=== PATIENT | male | born 1965 | race Caucasian/White ===

== ENCOUNTER 2019-06-29 19:01 | Emergency (ER) | payer BC, OTHER ==
[~2019-06-29] VITALS: Ht 175 cm; Wt 90.0 kg
--- OUTSIDE RECORDS SUMMARY | 2019-06-29 20:44 | XMS REPORT ---
Author Pravin Boone Organization [employer] Address Unknown Phone Unavailable Care Team Providers Care Health Unit Coordinator Name Role Phone DYAN COMBS CP Unavailable Allergies, Adverse Reactions, Alerts Substance Reaction Event Type N.K.D.A. Info Not Available Non Drug Allergy Problems Problem Type Condition Code Onset Dates Condition Statu s Assessment Dental caries K02.9 Active Assessment Dental examination Z01.20 Active Medications Medication Code System Code Instructions Start Date End Date Status Dosage Lisinopril [facility] [address]-17 20 MG Orally Once a day 1 tablet Procedures Procedure Coding System Code Date INTRAORL-PERIAPICAL 1 FILM 61439 CPT-4 D0220 2015 EXTRAC ERUPTED TOOTH/EXPOSED ROOT CPT-4 D7140 2015 LTD ORAL EVALUATION - PROBLEM FOCUS CPT-4 D0140 2015 Billing Notes on claim CPT-4 EC109 2015 Vital Signs Date/Time: 2015 Blood Pressure Diastolic 82 mmHg Blood Pressure Systolic 142 mmHg Results No Known Results Summary Purpose eClinicalWorks Submission
--- OUTSIDE RECORDS SUMMARY | 2019-06-29 20:44 | XMS REPORT ---
Author Author Pravin GORDON Organization [facility] Address [address] [place] [address] Care Team Providers Care Outpatient Scheduler Name Role Phone FRANCINE GORDON Unavailable [phone] PROBLEMS Unknown Problems ALLERGIES No Information ENCOUNTERS Encounter Location Date Diagnosis [facility] [address] [phone] Nov, Encounter for immunization Z 23 [facility] [address] [phone] Mar, Acute bilateral low back john n without sciatica M54.5 [facility] [address] [facility] [id number] [address] [place] [phone] Mar, Acute bilateral low back john n without sciatica M54.5 [facility] [address] [place] [id number] [place] [phone] Nov, Encounter for immunization Z 23 [facility] [address] [place] [id number] [address] [place] [phone] Apr, Dental examination Z01.20 an d Dental caries K02.9 [facility] [address] [place] [id number] [address] [place] [phone] Nov, Encounter for immunization Z 23 [facility] [address] [place] [id number] [address] [place] [phone] Nov, [facility] [address] [place] [id number] [address] [place] [phone] Nov, [facility] [address] [place] [id number] [address] [place] [phone] Nov, [facility] [address] [facility] [id number] [address] [place] [address] 11 Nov, 2009 IMMUNIZATIONS Vaccine Route Administration Date Status FLULAVAL QUAD 0.5ML (6 MO & UP) 2017 IM Intramuscular Dec 10 18 Administered SOCIAL HISTORY Never Assessed REASON FOR VISIT Flu shot PLAN OF CARE VITAL SIGNS MEDICATIONS Unknown Medications RESULTS No Results PROCEDURES Procedure Date Ordered Result Body Site FLULAVAL QUAD 0.5ML (6 MO AND UP) 2017Dec 10, 2017 SINGLE IMMUNIZATION ADMIN Dec 10, 2017 INSTRUCTIONS MEDICATIONS ADMINISTERED No Known Medications MEDICAL (GENERAL) HISTORY Type Description Date Medical History asthma Medical History high blood pressure Surgical History removed part of nose
--- OUTSIDE RECORDS SUMMARY | 2019-06-29 20:44 | XMS REPORT ---
Author Pravin Gilbert [facility] eClinicalWorks Address Unknown Phone Unavailable Care Team Providers Care Ship'S Carpenter Name Role Phone CHRISTOS BROWN Unavailable Allergies No Known Allergies Problems Problem Type Condition Code Onset Dates Condition Statu s Assessment Encounter for immunization Z23 A ctive Medications No Known Medications Procedures Procedure Coding System Code Date SINGLE IMMUNIZATION ADMIN CPT-4 94103 Nov FLUARIX QUAD P-FREE 3 AND UP .50 2015 CPT-4 42347 Dec 13, 2015 Results No Known Results Immunizations Vaccine Administration Date FLUARIX QUAD P-FREE 3 AND UP .50 2015Dec 13, 2015 Summary Purpose eClinicalWorks Submission
--- OUTSIDE RECORDS SUMMARY | 2019-06-29 20:44 | XMS REPORT ---
Author Author Pravin BENJAMIN [facility] Address [address] [place] [address] Care Team Providers Care Bead Cutter Name Role Phone SANCHO BENJAMIN Unavailable PROBLEMS Unknown Problems ALLERGIES No Known Allergies ENCOUNTERS Encounter Location Date Diagnosis [facility] [address] [facility] [id number] [address] [place] [phone] Mar, Acute bilateral low back john n without sciatica M54.5 [facility] [address] [id number] [address] [place] [phone] Mar, Acute bilateral low back john n without sciatica M54.5 [facility] [address] [id number] [place] [id number] Nov, Encounter for immunization Z 23 [facility] [address] [id number] [address] [place] [phone] Apr, Dental examination Z01.20 an d Dental caries K02.9 [facility] [address] [id number] [address] [place] [phone] Nov, Encounter for immunization Z 23 [facility] [address] [id number] [address] [place] [phone] Nov, [facility] [address] [id number] [address] [place] [phone] Nov, [facility] [address] [facility] [id number] [address] [place] [phone] Nov, [facility] [address] [facility] [id number] [address] [place] [phone] Nov, IMMUNIZATIONS No Known Immunizations SOCIAL HISTORY Never Assessed REASON FOR VISIT back pain/flu symptoms JStrasserRN PLAN OF CARE Activity Details Follow Up prn Reason: VITAL SIGNS Height 70 inches in 2017-03-18 Weight 234 lbs 2017-03-18 Temperature 97.0 degrees Fahrenheit 2017-03-18 Heart Rate 80 bpm 2017-03-18 Respiratory Rate 18 2017-03-18 BMI 33.57 kg/m2 2017-03-18 Blood pressure systolic 110 mmHg 2017-03-18 Blood pressure diastolic 78 mmHg 2017-03-18 MEDICATIONS Medication Instructions Dosage Frequency Start Date End Date Duration S tatus PredniSONE 10 MG Orally Once a day Take 4 tabs po x3 da ys, 3 tabs po x3 days, 2 tabs po x3 days, 1 tab po x3 days. 24h 12 day s Active Symbicort Active Cyclobenzaprine HCl 7.5 MG Orally Three times a day 1 tablet as needed 8 h Active Aleve Active Lisinopril 20 MG Orally Once a day 1 tablet 24h Active RESULTS No Results PROCEDURES No Known procedures INSTRUCTIONS MEDICATIONS ADMINISTERED No Known Medications MEDICAL (GENERAL) HISTORY Type Description Date Medical History asthma Medical History high blood pressure Surgical History removed part of nose
--- OUTSIDE RECORDS SUMMARY | 2019-06-29 20:44 | XMS REPORT ---
Author Author Pravin BROWN Organization e[employer]Works Address Unknown Phone Unavailable Care Team Providers Care Thaw Shed Heater Tender Name Role Phone CHRISTOS BROWN CP Unavailable Allergies No Known Allergies Problems Problem Type Condition Code Onset Dates Condition Statu s Assessment Encounter for immunization Z23 A ctive Medications No Known Medications Procedures Procedure Coding System Code Date SINGLE IMMUNIZATION ADMIN CPT-4 50185 Nov FLUARIX QUAD (3 & UP)-GSK-2014 CPT-[address] 2014 Results No Known Results Immunizations Vaccine Administration Date FLUARIX QUAD (3 & UP)-GSK-2014Dec 04, 2014 Summary Purpose eClinicalWorks Submission
[2019-06-29] MEDS ORDERED: TETANUS,DIPTH,PERTUSS P/F (BOOSTRIX) 0.5 ML VIAL IM ONE (21:15)
[2019-06-29] MEDS ORDERED: LIDOCAINE 1% INJ 20 ML 20 ML VIAL INJ ONE (21:15)
--- NOTE | 2019-06-29 21:23 | ED Upper Extremity ---
General Stated Complaint: RIGHT PINKIE FINGER INJ History of Present Illness Date Seen by Provider: June 29, 2019 Time Seen by Provider: 21:05 Initial Comments 54 year old male presents for injury to his right 5th finger, with laceration and partial nail avulsion. 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 Onset: just prior to arrival Pain/Injury Location: right 5th finger Method of Injury: incised Modifying Factors: Improves With Rest Allergies and Home Medications Allergies Coded Allergies: No Known Drug Allergies (Unverified , 06/29/19) Home Medications Cephalexin 500 Mg Tablet, 500 MG PO TID Prescribed by: SANCHO ZURITA on 06/29/192221 Patient Home Medication List Home Medication List Reviewed: Yes Review of Systems Constitutional: no symptoms reported, see HPI Skin: see HPI, other (laceration right 5th finger) All Other Systems Reviewed Negative Unless Noted: Yes Past Cxcfura-Rizzyz-Yfdrih Hx Past Med/Social Hx: Reviewed Nursing Past Med/Soc Hx Patient Social History Recent Foreign Travel: No Contact w/Someone Who Travel: No Physical Exam Vital Signs Capillary Refill : Height, Weight, BMI Height: '" Weight: lbs. oz. kg; BMI Method: General Appearance: WD/WN, no apparent distress Cardiovascular: normal peripheral pulses, regular rate, rhythm Respiratory: chest non-tender, lungs clear, normal breath sounds Hand: Right, laceration (Distal 5th finger), nail injury (partial avulsion of lateral tip. ), soft tissue tenderness Neurologic/Tendon: normal sensation, normal motor functions Neurologic/Psychiatric: no motor/sensory deficits, alert, normal mood/affect, oriented x 3 Skin: normal color, warm/dry Procedures/Interventions Wound Location: Upper Extremities (Right 5th finger) Wound Length (cm): 3.5 Wound's Depth, Shape: into muscle, nail-avulsed (partially) Suture: Ethlion Suture Size: 4-0 Number of Sutures: 4 Sterile Dressing Applied?: Yes Progress Wound well approximated. Patient tolerated well. Bulky sterile dressing applied. Progress/Results/Core Measures Results/Orders My Orders Orders - SANCHO ZURITA SALES ARCHITECT Finger(S) (06/29/19 21:08) Dipht,Pertuss(Acell),Tet Adult (Boostrix (06/29/19 21:15) Lidocaine 1% Inj 20 Ml (Xylocaine 1% Inj (06/29/19 21:15) Diagnostic Imaging Diagonstic Imaging: Xray Plain Films/CT/US/NM/MRI: other (finger) Comments NAME: NICO GALARZA [facility] REC#: [id number] PT STATUS: REG ER : 1965 PHYSICIAN: SANCHO ZURITAP ADMIT DATE: 06/29/19/ER Draft Date of Exam:06/29/19 FINGER(S) EXAM: Finger(s). INDICATION: Right 5th finger trauma. Laceration. COMPARISON: 03/25/2011. FINDINGS: Soft tissue laceration involving the distal right 5th finger. No radiopaque foreign body. No fracture. IMPRESSION: No acute osseous finding or radiopaque foreign body. Dictated on workstation # [id number] Dict: 06/29/192132 Trans: 06/29/192134 [facility] [id number] Interpreted by: ALISHA AHMADI MD Electronically signed by: Reviewed: Reviewed by Me Departure Impression Primary Impression: Laceration of right little finger Qualified Codes: S61.316A - Laceration without foreign body of right little finger with damage to nail, initial encounter Disposition: HOME, SELF-CARE Condition: Improved Departure-Patient Inst. Decision time for Depature: 22:00 Referrals: NO,LOCAL PHYSICIAN (PCP/Family) Primary Care Physician Patient Instructions: Laceration Repair With Stitches (DC) Add. Discharge Instructions: Keep the dressing dry and in place for 24 hours, you may re-inforce if needed. Do not submerge the wound in standing water (tub, pool, sink, light, etc). Leave sutures in place, return to Emergency Dept or your Primary Care Provider in 7-10 days for removal. You may shower, do not have water hit directly over wound. Clean with peroxide after shower, leave open to air when at home, cover with dressing or band-aid when out of the house. Watch for signs of infection: Redness, increased tenderness, warmth, discolored drainage or foul smelling drainage. Return to the emergency department for new, urgent health care problems. Take antibiotics, as prescribed. Scripts Cephalexin (Cephalexin) 500 Mg Tablet 500 MG PO TID, #15 TAB 0 Refills Prov: SANCHO ZURITA 06/29/19 Work/School Note: Work Release Form Date Seen in the Emergency Department: June 29, 2019 Return to Work: June 30, 2019 Other Restrictions Listed Below: keep right 5th finger clean and dry Restrictions: remove sutures at ER in 7-10 days SANCHO ZURITA June 29, 2019 21:23
--- NOTE | 2019-06-29 21:36 | Diagnostic Imaging Report ---
EXAM: Finger(s). INDICATION: Right 5th finger trauma. Laceration. COMPARISON: 03/25/2011. FINDINGS: Soft tissue laceration involving the distal right 5th finger. No radiopaque foreign body. No fracture. IMPRESSION: No acute osseous finding or radiopaque foreign body. Dictated by: Dictated on workstation # [id number]
[2019-06-29 22:20] VITALS: BP 128/90
[2019-06-29] MEDS ORDERED: CEPH500T PO (22:22)
== END 2019-06-29 22:20 | disposition home or self-care (01) ==
LOC: EDUNIT# 19:01 → ER 19:03
DX: S61.316A Laceration without foreign body of right little finger with damage to nail, initial encounter (principal); Z23 Encounter for immunization; W26.8XXA Contact with other sharp object(s), not elsewhere classified, initial encounter; Y92.219 Unspecified school as the place of occurrence of the external cause
CPT/HCPCS: 12002; 73140; 90471; 90715

== ENCOUNTER 2019-07-07 10:48 | Emergency (ER) | payer OTHER ==
[~2019-07-07] VITALS: Ht 162 cm; Wt 90.0 kg
[~2019-07-07 10:48] MED LIST: CEPH500T PO
[2019-07-07 11:05] VITALS: BP 121/79
--- OUTSIDE RECORDS SUMMARY | 2019-07-07 13:33 | XMS REPORT | Continuity of Care Document ---
Author Organization Unknown Address Unknown Phone Unavailable Allergies Active Description Code Type Severity Reaction Onset Reported/Identified Relationship to Patient Clinical Status Yes No Known Drug Allergies [id number] Drug Allergy Unknown N/A 06/29/2019 Medications There is no data. Problems Date Dx Coded Attending Type Code Diagnosis Diagnosed By 06/29/2019 SANCHO ZURITA Ot S61.316A LACERATION W/O FB OF R LITTLE FINGER W D 06/29/2019 PARMINDER, SANCHO BLASTING ENTRYMAN Ot W26.8XXA CONTACT WITH OTHER SHARP OBJECT(S), NEC, 06/29/2019 PARMINDER, SANCHO BLASTING ENTRYMAN Ot Y92.219 [facility] THE PL[facility] OF OCCURRENCE O 06/29/2019 PARMINDER, SANCHO BLASTING ENTRYMAN Ot Z23 ENCOUNTER FOR IMMUNIZATION 07/03/2019 SANCHO ZURITAP Ot S61.316A LACERATION W/O FB OF R LITTLE FINGER W D 07/03/2019 PARMINDER, SANCHO BLASTING ENTRYMAN Ot W26.8XXA CONTACT WITH OTHER SHARP OBJECT(S), NEC, 07/03/2019 PARMINDER, SANCHO ROBERTOP Ot Y92.219 [facility] THE PL[facility] OF OCCURRENCE O 07/03/2019 PARMINDER, SANCHO BLASTING ENTRYMAN Ot Z23 ENCOUNTER FOR IMMUNIZATION Procedures There is no data. Results There is no data. Encounters ACCT No. Visit Date/Time Discharge Status Pt. Type Provider Facility Loc./Unit Complaint [id number] 07/07/2019 10:50:00 020 11:05:00 DIS Emergency CYNTHIA WILL, RICKEY Smith [facility] ER STITCH REMOVAL [id number] 06/29/2019 19:03:00 020 22:20:00 DIS Emergency SANCHO ZURITA [facility] ER RIGHT PINKIE FINGER INJ
== END 2019-07-07 11:05 | disposition home or self-care (01) ==
LOC: EDUNIT# 10:48 → ER 10:50
DX: S61.210D Laceration without foreign body of right index finger without damage to nail, subsequent encounter (principal); X58.XXXD Exposure to other specified factors, subsequent encounter

== ENCOUNTER 2020-10-06 11:40 | Emergency (ER) | payer OTHER, BC ==
[~2020-10-06] VITALS: Ht 177.8 cm; Wt 90.0 kg
[2020-10-06] MEDS ORDERED: KETOROLAC 60 MG/2 ML VIAL IM ONE (12:00)
[2020-10-06] MEDS ORDERED: ORPHENADRINE 60 MG/2 ML (NORFLEX) AMP (ED ONLY) IM ONE (12:00)
[2020-10-06] MEDS ORDERED: NAPR-1071 PO (12:08)
[2020-10-06] MEDS ORDERED: METH-732 PO (12:08)
--- NOTE | 2020-10-06 12:09 | ED General ---
General Stated Complaint: BACK PAIN Source of Information: Patient Exam Limitations: No Limitations History of Present Illness Date Seen by Provider: Oct 06, 2020 Time Seen by Provider: 12:04 Initial Comments To ER with left low back pain. 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 It lasted only a minute and then felt better. Then yesterday when he was getting home he had a recurrence of the pain. The pain does not radiate down either leg. No fevers no chills. No loss of bowel or bladder control. No numbness of genitals. Timing/Duration: 1-2 Days Severity: Moderate Associated Systoms: Denies Symptoms Allergies and Home Medications Allergies Coded Allergies: No Known Drug Allergies (Unverified , 06/29/19) Home Medications Cephalexin 500 Mg Tablet, 500 MG PO TID Prescribed by: SANCHO ZURITA on 06/29/192221 Patient Home Medication List Home Medication List Reviewed: Yes Review of Systems Review of Systems Constitutional: see HPI EENTM: see HPI Respiratory: no symptoms reported Cardiovascular: no symptoms reported Genitourinary: no symptoms reported Musculoskeletal: see HPI, back pain Skin: no symptoms reported Psychiatric/Neurological: No Symptoms Reported Hematologic/Lymphatic: No Symptoms Reported Immunological/Allergic: no symptoms reported Past Ghxclyb-Ztakpg-Zonzbs Hx Immunizations Up To Date Tetanus Booster (TDap): More than 5yrs PED Vaccines UTD: Yes Seasonal Allergies Seasonal Allergies: No Past Medical History Surgeries: Yes (NASAL) Respiratory: No Cardiac: No Neurological: No Genitourinary: No Gastrointestinal: No Musculoskeletal: No Endocrine: No HEENT: No Cancer: No Psychosocial: No Integumentary: No Physical Exam Vital Signs Capillary Refill : Height, Weight, BMI Height: '" Weight: lbs. oz. kg; 29.00 BMI Method: General Appearance: No Apparent Distress, WD/WN Eyes: Bilateral Eye Normal Inspection, Bilateral Eye PERRL HEENT: PERRL/EOMI, TMs Normal Neck: Full Range of Motion, Normal Inspection Respiratory: Normal Breath Sounds, No Accessory Muscle Use, No Respiratory Distress Cardiovascular: Regular Rate, Rhythm, Normal Peripheral Pulses Gastrointestinal: Normal Bowel Sounds, Non Tender, Soft Extremity: Normal Capillary Refill, Normal Inspection Neurologic/Psychiatric: Alert, Oriented x3 Skin: Normal Color, Warm/Dry Procedures/Interventions Suture Size: 4-0 Progress/Results/Core Measures Suspected Sepsis SIRS Temperature: Pulse: Respiratory Rate: Blood Pressure / Mean: Results/Orders My Orders Orders - BEAR YUNG APRN Ketorolac Injection (Toradol Injection) (10/06/20 12:00) Orphenadrine Inj (Ed Only) (Norflex Inje (10/06/20 12:00) Vital Signs/I&O Capillary Refill : Departure Impression Primary Impression: Acute low back pain Disposition: HOME, SELF-CARE Condition: Stable Departure-Patient Inst. Decision time for Depature: 12:07 Referrals: NO,LOCAL PHYSICIAN (PCP/Family) Primary Care Physician Patient Instructions: Low Back Pain in Adults Add. Discharge Instructions: 1. Medication as directed. Follow-up with your family doctor this week. Scripts Naproxen (Naprosyn) 500 Mg Tablet 500 MG PO BID PRN for PAIN-MODERATE (5-7), #10 TAB 0 Refills Prov: BEAR YUNG APRN 10/06/20 Methocarbamol (Methocarbamol) 750 Mg Tablet 1500 MG PO Q6-8HR for Back Pain, #20 TAB Prov: BEAR YUNG APRN 10/06/20 Work/School Note: Work Release Form Date Seen in the Emergency Department: Oct 06, 2020 Return to Work: Oct 09, 2020 BEAR YUNG APRN Oct 06, 2020 12:08
[2020-10-06 12:30] VITALS: BP 127/80
== END 2020-10-06 12:30 | disposition home or self-care (01) ==
LOC: EDUNIT# 11:40 → ER 11:41
DX: M54.5 Low back pain (principal)
CPT/HCPCS: 99284

== ENCOUNTER 2020-10-18 08:45 | Outpatient (RCR) | payer BC, OTHER ==
[~2020-10-18 08:45] MED LIST changes: +METH-732 PO; +NAPR-1071 PO
== END 2020-11-06 11:00 | disposition home or self-care (01) ==
PROVIDERS: ATTEND Family Medicine
DX: S33.5XXA Sprain of ligaments of lumbar spine, initial encounter (principal); S39.012A Strain of muscle, fascia and tendon of lower back, initial encounter; I10 Essential (primary) hypertension; J45.909 Unspecified asthma, uncomplicated; X50.0XXA Overexertion from strenuous movement or load, initial encounter

== ENCOUNTER 2022-05-10 12:54 | Emergency (ER) | payer OTHER ==
[~2022-05-10] VITALS: Ht 177 cm; Wt 98.8 kg
[2022-05-10 13:41] LABS: BASOPHILS # (AUTO) 0.1 10^3/uL (0.0-0.1); BASOPHILS % (AUTO) 1 % (0-10); EOSINOPHILS # (AUTO) 0.3 10^3/uL (0.0-0.3); EOSINOPHILS % (AUTO) 3 % (0-10); HEMATOCRIT 44 % (40-54); HEMOGLOBIN 15.4 g/dL (13.3-17.7); LYMPHOCYTES # (AUTO) 2.7 10^3/uL (1.0-4.0); LYMPHOCYTES % (AUTO) 31 % (12-44); MEAN CORPUSCULAR HEMOGLOBIN 29 pg (25-34); MEAN CORPUSCULAR HGB CONC 35 g/dL (32-36); MEAN CORPUSCULAR VOLUME 84 fL (80-99); MEAN PLATELET VOLUME 10.2 fL (9.0-12.2); MONOCYTES # (AUTO) 0.6 10^3/uL (0.0-1.0); MONOCYTES % (AUTO) 7 % (0-12); NEUTROPHILS # (AUTO) 4.8 10^3/uL (1.8-7.8); NEUTROPHILS % (AUTO) 57 % (42-75); PLATELET COUNT 228 10^3/uL (130-400); WHITE BLOOD COUNT 8.4 10^3/uL (4.3-11.0)
--- NOTE | 2022-05-10 13:44 | ED Neurological Problem ---
General Chief Complaint: Dizziness/Syncope Stated Complaint: DIZZY SPELLS Nursing Triage Note: pt presents to ed via pov from home with complaints of dizziness starting at 0500 this am. pt reports feeling like the room it spinning. pt family reports he has fallen 3 times at home this am because of the dizziness. pt reports no cp and no headache. Source: patient Exam Limitations: no limitations History of Present Illness Date Seen by Provider: May 10, 2022 Time Seen by Provider: 12:58 Initial Comments 56-year-old male presents to the ED with complaints of dizzy spell starting today. He reports he woke up at 5 AM with dizziness, which then improved. He stated he was lying in his recliner and started having dizziness again approximately 1 hour prior to arrival. Reports that he got up, and felt better, but then sat down and again got worse. Denies loss of consciousness. Patient has a difficult time describing his dizziness. Thinks that maybe it feels like his head is floating. States that dizziness is worse when he looks down or is laying down. He also reports dizziness is worse if he gets up too quickly. He is concerned that it might be food poisoning, states he ate at a friend's house last night and ate something new. Denies any vomiting or diarrhea. Reports mild right upper quadrant abdominal pain. States his also felt dizzy this morning. States that she ate with him last night. He reports he has a carbon monoxide detector at home that is functional. Reports this morning when he was dizzy he had a headache, he took 3 ibuprofen which resolved his headache. Reports feeling chills and sweating earlier. Denies chest pain, shortness of air, vomiting, diarrhea. Reports past medical history of asthma, hypertension, states he is on metformin, but unsure if he is diabetic. He also takes lisinopril, multivitamin, and uses an inhaler as needed for asthma. States that he had 1 seizure over 20 years ago, does not take any medications for seizures. Denies any seizure-like activity today. Denies alcohol, drug, cigarette use. Orthostatic vital signs were obtained during assessment, and were normal, but patient reported dizziness when lying down. Allergies and Home Medications Allergies Coded Allergies: No Known Drug Allergies (Unverified , 06/29/19) Patient Home Medication List Home Medication List Reviewed: Yes Amoxicillin/Potassium Clav (Amox Tr-K Clv 875-125 mg Tab) 875 Mg-125 Mg Tablet, 1 EACH PO BID Prescribed by: Elvi Garcia on 05/10/22 1524 Cephalexin (Cephalexin) 500 Mg Tablet, 500 MG PO TID Prescribed by: SANCHO ZURITA on 06/29/192221 Meclizine HCl (Meclizine HCl) 25 Mg Tablet, 25 MG PO Q8H PRN for prn Prescribed by: Elvi Garcia on 05/10/22 1524 Methocarbamol (Methocarbamol) 750 Mg Tablet, 1,500 MG PO Q6-8HR Prescribed by: BEAR YUNG on 10/06/20 1208 Naproxen (Naprosyn) 500 Mg Tablet, 500 MG PO BID PRN for PAIN-MODERATE (5-7) Prescribed by: BEAR YUNG on 10/06/20 1208 Ondansetron (Ondansetron Odt) 4 Mg Tab.rapdis, 4 MG SL Q4H PRN for NAUSEA/VOMITING Prescribed by: Elvi Garcia on 05/10/22 152 Review of Systems Review of Systems Constitutional: see HPI Past Aadncal-Eajffr-Oritxl Hx Patient Social History Tobacco Use?: No Substance use?: No Alcohol Use?: No Pt feels they are or have been: No Immunizations Up To Date Tetanus Booster (TDap): More than 5yrs PED Vaccines UTD: Yes First/Initial COVID19 Vaccinat: APRIL 2020 Second COVID19 Vaccination Dontae: MAY 2020 Third COVID19 Vaccination Date: APRIL 2020 Seasonal Allergies Seasonal Allergies: No Past Medical History Surgery/Hospitalization HX: pmh: asthma, htn Surgeries: Yes (NASAL) Nose (Polyps removed) Respiratory: Yes Asthma Cardiac: No Hypertension Neurological: No Genitourinary: No Gastrointestinal: No Musculoskeletal: No Endocrine: No HEENT: No Cancer: No Psychosocial: No Integumentary: No Physical Exam Vital Signs Vital Signs - First Documented 05/10/22 13:00 Temp 35.9 Pulse 86 Resp 16 B/P (MAP) 136/87 (103) Pulse Ox 96 Capillary Refill : Less Than 3 Seconds Height, Weight, BMI Height: '" Weight: lbs. oz. 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, no motor/sensory deficits, alert, normal mood/affect Crainal Nerves: normal hearing, normal speech, PERRL Coordination/Gait: normal finger to nose, normal gait, negative Romberg's sign Motor/Sensory: no motor deficit, no sensory deficit Skin: normal color, warm/dry Procedures/Interventions Suture Size: 4-0 Progress/Results/Core Measures Results/Orders Lab Results Laboratory Tests Test 05/10/22 13:13 05/10/22 13:41 05/10/22 14:24 Range/Units White Blood Count 8.4 4.3-11.0 10^3/uL Red Blood Count 5.23 4.30-5.52 10^6/uL Hemoglobin 15.4 13.3-17.7 g/dL Hematocrit 44 40-54 % Mean Corpuscular Volume 84 80-99 fL Mean Corpuscular Hemoglobin 29 25-34 pg Mean Corpuscular Hemoglobin Concent 35 32-36 g/dL Red Cell Distribution Width 13.3 10.0-14.5 % Platelet Count 228 130-400 10^3/uL Mean Platelet Volume 10.2 9.0-12.2 fL Immature Granulocyte % (Auto) 1 % Neutrophils (%) (Auto) 57 42-75 % Lymphocytes (%) (Auto) 31 12-44 % Monocytes (%) (Auto) 7 0-12 % Eosinophils (%) (Auto) 3 0-10 % Basophils (%) (Auto) 1 0-10 % Neutrophils # (Auto) 4.8 1.8-7.8 10^3/uL Lymphocytes # (Auto) 2.7 1.0-4.0 10^3/uL Monocytes # (Auto) 0.6 0.0-1.0 10^3/uL Eosinophils # (Auto) 0.3 0.0-0.3 10^3/uL Basophils # (Auto) 0.1 0.0-0.1 10^3/uL Immature Granulocyte # (Auto) 0.0 0.0-0.1 10^3/uL Sodium Level 137 135-145 MMOL/L Potassium Level 4.1 3.6-5.0 MMOL/L Chloride Level 104 98-107 MMOL/L Carbon Dioxide Level 22 21-32 MMOL/L Anion Gap 11 5-14 MMOL/L Blood Urea Nitrogen 17 7-18 MG/DL Creatinine 0.79 0.60-1.30 MG/DL Estimat Glomerular Filtration Rate 104 BUN/Creatinine Ratio 22 Glucose Level 176 H 70-105 MG/DL Calcium Level 9.6 8.5-10.1 MG/DL Corrected Calcium 9.4 8.5-10.1 MG/DL Magnesium Level 2.0 1.6-2.4 MG/DL Total Bilirubin 1.2 H 0.1-1.0 MG/DL Aspartate Amino Transf (AST/SGOT) 22 5-34 U/L Alanine Aminotransferase (ALT/SGPT) 39 0-55 U/L Alkaline Phosphatase 65 40-136 U/L Total Protein 7.5 6.4-8.2 GM/DL Albumin 4.3 3.2-4.5 GM/DL Amylase Level 50 25-125 U/L Lipase 24 8-78 U/L Thyroid Stimulating Hormone (TSH) 0.44 0.35-4.94 UIU/ML Glucometer 162 H 70-110 MG/DL Influenza Type A (RT-PCR) Not Detected Not Detecte Influenza Type B (RT-PCR) Not Detected Not Detecte SARS-CoV-2 RNA (RT-PCR) Not Detected Not Detecte My Orders Orders - ELVI GARCIA FRENCH [employer]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 Ekg Tracing (05/10/22 13:00) Ct Head Wo (05/10/22 13:33) Amylase (05/10/22 13:33) Cbc With Automated Diff (05/10/22 13:33) Comprehensive Metabolic Panel (05/10/22 13:33) Lipase (05/10/22 13:33) Magnesium (05/10/22 13:33) Thyroid Stimulating Hormone (05/10/22 13:33) Covid 19 Inhouse Test (05/10/22 13:33) Influenza A And B By Pcr (05/10/22 13:33) Ed Iv/Invasive Line Start (05/10/22 13:37) Ns Iv 1000 Ml (Sodium Chloride 0.9%) (05/10/22 13:45) Accucheck Stat ONCE (05/10/22 13:37) Orthostatic Vital Signs (Adult (05/10/22 13:38) Meclizine Tablet (Antivert Tablet) (05/10/22 14:00) Ondansetron Injection (Zofran Injectio (05/10/22 15:00) Medications Given in ED Current Medications Medications Dose Ordered Sig/Stef Route Start Time Stop Time Status Last Admin Dose Admin Meclizine HCl 25 mg ONCE ONCE PO 05/10/22 14:00 05/10/22 14:01 DC 05/10/22 14:11 25 MG Ondansetron HCl 4 mg ONCE ONCE IVP 05/10/22 15:00 05/10/22 15:01 DC 05/10/22 15:14 4 MG Vital Signs/I&O 05/10/22 05/10/22 05/10/22 13:00 13:46 15:29 Temp 35.9 Pulse 86 68 72 75 74 Resp 16 18 B/P (MAP) 136/87 (103) 139/86 (103) 131/82 144/94 (111) 142/98 (113) Pulse Ox 96 98 Blood Pressure Mean: 103 Progress Progress Note : Time: 13:46 Progress Note Patient seen and evaluated, sitting on edge of bed, no acute distress, patient did become dizzy when lying down during orthostatic vitals. Orthostatic vitals were normal. Based on exam and symptoms, work-up initiated including CBC, CMP, magnesium, amylase, lipase, TSH, EKG, Accu-Chek, orthostatic vitals. Patient requested COVID testing, COVID and flu swab ordered. IV fluids ordered. [address] reviewed. CBC grossly normal, CMP grossly normal, glucose elevated 176. CT negative for acute intracranial process. Amylase, lipase, TSH normal. CT does show pansinus mucosal thickening and/or secretions. Results discussed with patient. Patient denied runny nose earlier when asked, but did report that his headache was sinus headache, and felt pressure in his ears and like his hearing was distant. Will treat for sinus infection, this is a possible cause of his dizziness. Patient reports that the meclizine helped a little bit, but still pretty dizzy when lying down. Will still send home with meclizine to use as needed. 1521 COVID and flu negative. Zofran given for nausea. Patient now reporting that he is feeling better. Will discharge with antibiotic for sinus infection, meclizine, and Zofran. Initial ECG Impression Date: May 10, 2022 Initial ECG Impression Time: 13:13 Initial ECG Rate: 66 Initial ECG Rhythm: Normal Sinus Initial ECG Intervals: Normal Initial ECG Impression: Normal Initial ECG Comparisson: No Previous ECG Available Diagnostic Imaging Diagonstic Imaging: CT Plain Films/CT/US/NM/MRI: chest Comments [facility], [place] NAME: NICO GALARZA [employer] REC#: [id number] PT STATUS: REG ER : 1965 PHYSICIAN: ELVI GARCIA APRN ADMIT DATE: 05/10/22/ER Signed Date of Exam:05/10/22 CT HEAD WO PROCEDURE: CT head without contrast. TECHNIQUE: Multiple contiguous axial images were obtained through the brain without the use of intravenous contrast. Auto Exposure Controls were utilized during the CT exam to meet ALARA standards for radiation dose reduction. INDICATION: Dizziness. COMPARISON: None available. FINDINGS: No hyperdense hemorrhage or space-occupying mass. No hydrocephalus or midline shift. The basilar cisterns are normal. Phillips-white matter differentiation is well preserved. The mastoid air cells are clear. Mucosal thickening and near complete opacification of all paranasal sinuses. No focal osseous abnormality of the calvarium. IMPRESSION: 1. No acute intracranial process. 2. Pansinus mucosal thickening and/or secretions. Correlation for symptoms of sinusitis is suggested. Dictated by: Dictated on workstation # [id number] Dict: 05/10/22 1411 Trans: 05/10/22 1413 [facility] [id number] Interpreted by: ARLETTE GREEN MD Electronically signed by: ARLETTE GREEN MD 05/10/22 1413 Departure Impression Primary Impression: Vertigo Additional Impression: Sinusitis Disposition: 01 HOME, SELF-CARE Condition: Stable Departure-Patient Inst. Decision time for Depature: 15:22 Referrals: TOMI RENNER APRN (PCP/Family) Primary Care Physician Patient Instructions: Vertigo (a Type of Dizziness) (DC) Add. Discharge Instructions: Complete full course of antibiotic. Take meclizine as needed for dizziness. Take Zofran as needed for nausea. Follow-up with your primary care provider. Return for severe headache, chest pain, shortness of breath, persistent vomiting, vision changes, fainting, or any other new, concerning, or worsening symptoms. All discharge instructions reviewed with patient and/or family. Voiced understanding. Scripts Meclizine HCl (Meclizine HCl) 25 Mg Tablet 25 MG PO Q8H PRN for prn, #21 TAB 0 Refills Prov: ELVI GARCIA APRN 05/10/22 Ondansetron (Ondansetron Odt) 4 Mg Tab.rapdis 4 MG SL Q4H PRN for NAUSEA/VOMITING, #20 TAB 0 Refills Prov: ELVI GARCIA APRN 05/10/22 Amoxicillin/Potassium Clav (Amox Tr-K Clv 875-125 mg Tab) 875 Mg-125 Mg Tablet 1 EACH PO BID for 7 Days, #14 TAB 0 Refills Prov: ELVI GARCIA APRN 05/10/22 Work/School Note: Work Release Form Date Seen in the Emergency Department: May 10, 2022 Return to Work: May 12, 2022 Restrictions: No Restrictions ELVI GARCIA APRN May 10, 2022 13:44
[2022-05-10] MEDS ORDERED: NS IV 1000 ML 1,000 ML IV SCH (13:45)
[2022-05-10 13:46] VITALS: BP_SYST 139; BP_SYST 142; BP_SYST 144; BP_DIAS 86; BP_DIAS 94; BP_DIAS 98
[2022-05-10 13:46] LABS: ALBUMIN 4.3 GM/DL (3.2-4.5); POTASSIUM 4.1 MMOL/L (3.6-5.0)
[2022-05-10 13:48] LABS: CALCIUM 9.6 MG/DL (8.5-10.1)
[2022-05-10 13:49] LABS: TOTAL PROTEIN 7.5 GM/DL (6.4-8.2)
[2022-05-10 13:51] LABS: BILIRUBIN,TOTAL 1.2 MG/DL (0.1-1.0)
[2022-05-10 13:52] LABS: CREATININE SERUM 0.79 MG/DL (0.60-1.30)
[2022-05-10] MEDS ORDERED: MECLIZINE 25 MG (ANTIVERT) TAB PO ONE (14:00)
--- NOTE | 2022-05-10 14:15 | Diagnostic Imaging Report ---
PROCEDURE: CT head without contrast. TECHNIQUE: Multiple contiguous axial images were obtained through the brain without the use of intravenous contrast. Auto Exposure Controls were utilized during the CT exam to meet ALARA standards for radiation dose reduction. INDICATION: Dizziness. COMPARISON: None available. FINDINGS: No hyperdense hemorrhage or space-occupying mass. No hydrocephalus or midline shift. The basilar cisterns are normal. Phillips-white matter differentiation is well preserved. The mastoid air cells are clear. Mucosal thickening and near complete opacification of all paranasal sinuses. No focal osseous abnormality of the calvarium. IMPRESSION: 1. No acute intracranial process. 2. Pansinus mucosal thickening and/or secretions. Correlation for symptoms of sinusitis is suggested. Dictated by: Dictated on workstation # [id number]
[2022-05-10] MEDS ORDERED: ONDANSETRON 4 MG/2 ML (SDV) Z0FRAN IVP ONE (15:00)
[2022-05-10] MEDS ORDERED: AMOX1TAB12 PO (15:24)
[2022-05-10] MEDS ORDERED: MECL-149 PO (15:24)
[2022-05-10] MEDS ORDERED: ONDA4TAB11 SL (15:24)
[2022-05-10 15:29] VITALS: BP 131/82
== END 2022-05-10 15:29 | disposition home or self-care (01) ==
LOC: EDUNIT# 12:54 → ER 12:56
DX: J32.9 Chronic sinusitis, unspecified (principal); R11.0 Nausea; J45.909 Unspecified asthma, uncomplicated; I10 Essential (primary) hypertension; Z79.51 Long term (current) use of inhaled steroids; Z79.899 Other long term (current) drug therapy; Z20.822 Contact with and (suspected) exposure to COVID-19
CPT/HCPCS: 36415; 70450; 80053; 82150; 82947; 83690; 83735; 84443; 85025; 87636; 93005